=== PATIENT | female | born 1985 | race Native Hawaiian/Other Pacific Islander ===

== ENCOUNTER 2016-10-09 03:23 | Emergency (ER) | payer MEDICAID, OTHER ==
[~2016-10-09] VITALS: Ht 157.5 cm; Wt 61.8 kg
[~2016-10-09 03:23] MED LIST: OMEP20TA PO; Z.0.BCPILL PO
[2016-10-09 03:29] VITALS: BP 119/81; PULSE 91; RESP 14; TEMP 98.4; O2SAT 98
[2016-10-09 03:34] VITALS: BP 119/81; PULSE 91; RESP 16; TEMP 98.4; O2SAT 98
[2016-10-09] MEDS ORDERED: SODIUM CHLOR 0.9% 1000 ML INJ 1,000 ML IV SCH (03:37)
--- NOTE | 2016-10-09 03:42 | PD ---
HPI Chief Complaint: GI Complaint Time Seen by Provider: 03:37 Travel History International Travel<30 days: No Contact w/Intl Traveler<30days: No Traveled to known affect area: No History of Present Illness HPI 30-year-old female presents to the emergency department for complaint of abdominal pain with nausea vomiting and diarrhea. Symptoms have been present since approximately 12 noon on Saturday. Patient with recent exposure to GI virus as son has same symptoms. Son was seen by his program officer on Saturday. Patient denies hematemesis coffee-ground emesis melena hematochezia. Patient states abdominal pain is 10 over 10 in intensity and generalized primarily epigastric. Patient denies any chronic medical history and only in the past. Patient takes no medications on a routine basis. Patient is unable to tolerate sips of water. Patient has vomited approximately 6-7 times. Patient's had a small amount of loose diarrhea type stool. Patient is continued to produce urine. Patient takes control pills. Patient denies dysuria frequency urgency or flank pain. Patient is able to identify exacerbating or alleviating factors. No report of dietary indiscretion well water ingestion or foreign travel. Patient's had no recent respiratory illness shortness of breath or chest pain. PFSH Past Medical History Narrative Medical Headache, bronchitis, ; no tobacco use; nursing notes reviewed Asthma: No Anxiety: No Depression: No Cancer: No High Cholesterol: No Chemotherapy: No Chest Pain: No Congestive Heart Failure: No COPD: Yes Diabetes: No Diminished Hearing: No GERD: No Headaches: Yes Hiatal Hernia: No Kidney Stones: No Immunizations Current: No Migraines: No Radiation Therapy: No Renal Failure: No Seizures: No Thyroid Disease: No Menopausal: No : 1 Para: 1 Miscarriage: 0 : 0 Past Surgical History Abdominal Surgery: No Cardiac Surgery: No Section: Yes Ear Surgery: No Eye Surgery: No Genitourinary Surgery: No Gynecologic Surgery: Yes (C- SECTION) Insulin Pump: No Oral Surgery: No Pacemaker: No Thoracic Surgery: No Other Surgery: Yes (C- SECTION) Social History Alcohol Use: No Tobacco Use: No Substance Use: No Allergies-Medications (Allergen,Severity, Reaction): Coded Allergies: No Known Allergies (Verified , 01/31/14) Reported Meds & Prescriptions Reported Meds & Active Scripts Active Omeprazole 20 Mg Tab 20 Mg PO DAILY 30 Days Reported Control Pills (Miscellaneous Medication) Tab 1 Tab PO DAILY Review of Systems Except as stated in HPI: all other systems reviewed are Neg General / Constitutional: No: Fever, Chills HENT: No: Congestion Cardiovascular: No: Chest Pain or Discomfort Respiratory: No: Shortness of Breath Gastrointestinal: Positive: Nausea, Vomiting, Diarrhea, Abdominal Pain Genitourinary: No: Dysuria, Flank Pain Musculoskeletal: No: Myalgias, Arthralgias Skin: No Rash Neurologic: No: Weakness Psychiatric: No: Anxiety Endocrine: No: Heat Intolerance Hematologic/Lymphatic: No: Easy Bruising Physical Exam Narrative GENERAL: Well-developed well-nourished pleasant female in no acute distress no respiratory distress SKIN: Warm and dry. HEAD: Normocephalic. EYES: No scleral icterus. No injection or drainage. NECK: Supple, trachea midline. No JVD or lymphadenopathy. CARDIOVASCULAR: Regular rate and rhythm without murmurs, gallops, or rubs. RESPIRATORY: Breath sounds equal bilaterally. No accessory muscle use. GASTROINTESTINAL: Abdomen soft, diffusely tender to palpation without guarding or rebound, nondistended. MUSCULOSKELETAL: No cyanosis, or edema. BACK: Nontender without obvious deformity. No CVA tenderness. Data Data Last Documented VS Vital Signs Date Time Temp Pulse Resp B/P Pulse Ox O2 Delivery O2 Flow Rate FiO2 10/09/16 04:21 85 16 111/69 100 Room Air 10/09/16 03:34 98.4 Orders Complete Blood Count With Diff (10/09/16 03:37) Comprehensive Metabolic Panel (10/09/16 03:37) Lipase (10/09/16 03:37) Urinalysis - C+S If Indicated (10/09/16 03:37) Iv Access Insert/Monitor (10/09/16 03:37) Ecg Monitoring (10/09/16 03:37) Oximetry (10/09/16 03:37) Ondansetron Inj (Zofran Inj) (10/09/16 03:45) Pantoprazole Inj (Protonix Inj) (10/09/16 03:45) Sodium Chlor 0.9% 1000 Ml Inj (Ns 1000 M (10/09/16 03:37) Sodium Chloride 0.9% Flush (Ns Flush) (10/09/16 03:45) Ed Urine Pregnancytest Poc (10/09/16 03:37) Labs Laboratory Tests Test 10/09/16 04:00 White Blood Count 8.2 TH/MM3 Red Blood Count 4.24 MIL/MM3 Hemoglobin 12.7 GM/DL Hematocrit 37.3 % Mean Corpuscular Volume 87.9 FL Mean Corpuscular Hemoglobin 30.0 PG Mean Corpuscular Hemoglobin 34.2 % Concent Red Cell Distribution Width 12.3 % Platelet Count 263 TH/MM3 Mean Platelet Volume 8.1 FL Neutrophils (%) (Auto) 86.1 % Lymphocytes (%) (Auto) 7.9 % Monocytes (%) (Auto) 3.5 % Eosinophils (%) (Auto) 0.7 % Basophils (%) (Auto) 1.8 % Neutrophils # (Auto) 7.0 TH/MM3 Lymphocytes # (Auto) 0.7 TH/MM3 Monocytes # (Auto) 0.3 TH/MM3 Eosinophils # (Auto) 0.1 TH/MM3 Basophils # (Auto) 0.1 TH/MM3 CBC Comment DIFF FINAL Differential Comment Urine Color YELLOW Urine Turbidity CLEAR Urine pH 6.0 Urine Specific [place] 1.030 Urine Protein NEG mg/dL Urine Glucose (UA) NEG mg/dL Urine Ketones 15 mg/dL Urine Occult Blood NEG Urine Nitrite NEG Urine Bilirubin NEG Urine Leukocyte Esterase TRACE Urine RBC 0-3 /hpf Urine WBC 0-2 /hpf Urine Squamous Epithelial 0-5 /hpf Cells Urine Mucus MANY /lpf Microscopic Urinalysis Comment CULT NOT INDICATED Sodium Level 143 MEQ/L Potassium Level 4.0 MEQ/L Chloride Level 109 MEQ/L Carbon Dioxide Level 24.3 MEQ/L Anion Gap 10 MEQ/L Blood Urea Nitrogen 12 MG/DL Creatinine 0.60 MG/DL Estimat Glomerular Filtration 117 ML/MIN Rate Random Glucose 98 MG/DL Calcium Level 8.7 MG/DL Total Bilirubin 0.5 MG/DL Aspartate Amino Transf 9 U/L (AST/SGOT) Alanine Aminotransferase 13 U/L (ALT/SGPT) Alkaline Phosphatase 43 U/L Total Protein 7.7 GM/DL Albumin 4.1 GM/DL Lipase 89 U/L MDM Medical Decision Making Medical Screen Exam Complete: Yes Emergency Medical Condition: Yes Medical Record Reviewed: Yes Interpretation(s) CBC & BMP Diagram 10/09/16 04:00 Vital Signs Date Time Temp Pulse Resp B/P Pulse Ox O2 Delivery O2 Flow Rate FiO2 5/2/17 04:21 85 16 111/69 100 Room Air 10/09/16 04:00 16 98 Room Air 10/09/16 03:40 16 10/09/16 03:34 98.4 91 16 119/81 98 10/09/16 03:29 98.4 91 14 119/81 98 Room Air poc hcg: negative Differential Diagnosis Abdominal pain, gastroenteritis, gastritis, cholecystitis, pancreatitis, dehydration, electrolyte disturbance, UTI, Narrative Course IV access obtained specimens collected and sent for resulting patient administered Zofran 4 mg IV Protonix 40 mg IV It is now 5:10 AM patient is clinically improved lab values are found to be in normal range we'll give Tylenol of oral fluids and anticipate outpatient management with prescription for Zofran to take as needed for nausea and/or vomiting Diagnosis Primary Impression: Gastroenteritis Referrals: Primary Care Physician call for appointment Patient Instructions: General Instructions Additional Instructions: Increase fluid hydration Follow clear liquid diet for next 12-24 hours advance as tolerated to bland then regular diet Takes Zofran as prescribed as needed for nausea and/or vomiting Follow-up with your primary care physician Take acetaminophen/Tylenol as needed for minor pain or for fever 100.4F or greater Take ibuprofen/Advil/Motrin as tolerated per package directions as needed for pain associated with inflammation or for fever 100.4F or greater Return to the emergency department for any concerns or change in condition Med/Other Pt SpecificInfo: Prescription(s) given Scripts Ondansetron Odt (Zofran Odt)4 Mg Tab4 Mg SL Q6HR PRN (Nausea/Vomiting) #10 TAB Ref 0 Prov:Olesya Motley MD 10/09/16 Olesya Motley MD October 09, 2016 03:42
[2016-10-09] MEDS ORDERED: SODIUM CHLORIDE 0.9% FLUSH 10 ML FLUSH IV FLUSH PRN (03:45)
[2016-10-09] MEDS ORDERED: ONDANSETRON HCL 4 MG/2 ML VIAL IVP ONE (03:45)
[2016-10-09] MEDS ORDERED: PANTOPRAZOLE SODIUM 40 MG VIAL IVP ONE (03:45)
[2016-10-09 04:00] VITALS: RESP 16; O2SAT 98
[2016-10-09 04:12] LABS: BASOPHIL # 0.1 TH/MM3 (0-0.2); BASOPHIL % 1.8 % (0.0-2.0); EOSINOPHIL # 0.1 TH/MM3 (0-0.4); EOSINOPHIL % 0.7 % (0.0-4.0); HEMATOCRIT 37.3 % (35.0-46.0); HEMO FLAGS DIFF FINAL; LYMPH % 7.9 % (9.0-44.0); LYMPHOCYTE # 0.7 TH/MM3 (1.0-4.8); MEAN CELL VOLUME 87.9 FL (80.0-100.0); MEAN CORPUSCULAR HGB CONC 34.2 % (32.0-36.0); MONO % 3.5 % (0.0-8.0); NEUT % 86.1 % (16.0-70.0); PLATELET COUNT 263 TH/MM3 (150-450); RED BLOOD COUNT 4.24 MIL/MM3 (4.00-5.30); RED CELL DISTRIBUTION WIDTH 12.3 % (11.6-17.2); WHITE BLOOD COUNT 8.2 TH/MM3 (4.0-11.0)
[2016-10-09 04:21] VITALS: BP 111/69; PULSE 85; RESP 16; O2SAT 100
[2016-10-09 04:23] LABS: BLOOD, URINE NEG (NEG); GLUCOSE,URINE NEG (NEG); KETONE, URINE 15 mg/dL (NEG); NITRITE,URINE NEG (NEG)
[2016-10-09 04:24] LABS: CHLORIDE 109 MEQ/L (98-107); SODIUM (NA) 143 MEQ/L (136-145)
[2016-10-09 04:28] LABS: ANION GAP 10 MEQ/L (5-15); BICARBONATE 24.3 MEQ/L (21.0-32.0); BLOOD UREA NITROGEN 12 MG/DL (7-18)
[2016-10-09 04:31] LABS: ALT (GPT) 13 U/L (10-53); AST (GOT) 9 U/L (15-37); GLOMERULAR FILTRATION RATE 117 ML/MIN (>89)
[2016-10-09 04:33] LABS: TOTAL BILIRUBIN ADULT 0.5 MG/DL (0.2-1.0)
[2016-10-09 04:34] LABS: ALKALINE PHOSPHATASE 43 U/L (45-117)
[2016-10-09 04:36] LABS: URINE COLOR YELLOW (YELLW/STRAW)
[2016-10-09 04:37] LABS: MUCUS URINE MANY /lpf (OCC); SQUAMOUS EPITHELIAL CELL URINE 0-5 /hpf (0-5)
[2016-10-09 04:38] LABS: WBC, URINE 0-2 /hpf (0-5)
[2016-10-09 04:39] LABS: RBC, URINE 0-3 /hpf (0-3)
[2016-10-09 04:40] LABS: COMMENT (UR) CULT NOT INDICATED; CULTURE IF INDICATED CULT NOT INDICATED
[2016-10-09] MEDS ORDERED: ZOFR4TAB3 SL (05:08)
[2016-10-09 05:18] VITALS: BP 104/62; PULSE 79; RESP 18; O2SAT 98
[2016-10-09] MEDS ORDERED: ONDANSETRON HCL 4 MG/2 ML VIAL IV PUSH ONE (05:30)
[2016-11-15] MEDS ORDERED: ORTH0.35 PO (17:13)
== END 2016-10-09 06:30 | disposition home or self-care (01) ==
LOC: PHED 03:23
DX: K52.9 Noninfective gastroenteritis and colitis, unspecified (principal); R11.2 Nausea with vomiting, unspecified; J44.9 Chronic obstructive pulmonary disease, unspecified
CPT/HCPCS: 80053; 81001; 83690; 84703; 85025; 96361; 96374; 96375; 96376; 99284; C9113; J2405; J7030